=== PATIENT | male | born 1995 | race Two or more races ===

== ENCOUNTER 2019-09-21 23:03 | Emergency (ER) | payer OTHER, SELFPAY ==
[~2019-09-21] VITALS: Ht 170.2 cm; Wt 77.3 kg
[2019-09-21 23:05] VITALS: BP 145/70
== END 2019-09-21 23:23 | disposition home or self-care (01) ==
LOC: ED 23:18
DX: R07.2 Precordial pain (principal)
CPT/HCPCS: 93005; 99283

== ENCOUNTER 2019-10-24 19:43 | Emergency (ER) | payer SELFPAY ==
[~2019-10-24] VITALS: Ht 172.7 cm; Wt 76.2 kg
[2019-10-24 19:44] VITALS: BP 124/58
--- NOTE | 2019-10-24 20:08 | NUR ---
PT C/O INTERMINTENT LEFT CHEST PAIN THAT RADIATES TO NECK AND PAIN IN RFA, FOR ABOUT 2 MONTHS. PCP DX ANXIETY ABOUT A MONTH AGO, PT DOES NOT TAKE PRESCIBED ANXIETY MEDS. PT CONNECTED TO MONITORING. CALL LIGHT IN REACH. PROVIDER AT BEDSIDE. AWAITING ORDERS AT THIS TIME.
[2019-10-24 20:50] LABS: BASOPHILS # (AUTO) 0.03 x10^3/uL (0-0.1); BASOPHILS % (AUTO) 0 % (0-1); EOSINOPHILS # (AUTO) 0.09 x10^3/uL (0-0.4); EOSINOPHILS % (AUTO) 1 % (1-7); LYMPHOCYTES % (AUTO) 37 % (22-44); MD NO; MEAN CORPUSCULAR HEMOGLOBIN 31.1 pg (27.5-34.5); MEAN CORPUSCULAR HGB CONC 33.2 g/dL (33.2-36.2); MEAN CORPUSCULAR VOLUME 93.4 fL (81-97); MONOCYTES # (AUTO) 0.56 x10^3/uL (0.2-0.8); MONOCYTES % (AUTO) 8 % (2-9); NEUTROPHILS # (AUTO) 3.92 x10^3/uL (1.8-6.8); NEUTROPHILS % (AUTO) 54 % (42-75); PLATELET COUNT 255 x10^3/uL (130-400); RED BLOOD COUNT 5.07 x10^6/uL (4.38-5.82); RED CELL DISTRIBUTION WIDTH 13.9 % (9.4-14.8)
[2019-10-24 20:58] LABS: ALBUMIN 4.4 g/dL (3.4-5.0); ANION GAP 7 mmol/L (5-15); CALCIUM 8.6 mg/dL (8.5-10.1); CHLORIDE 104 mmol/L (98-107); CREATININE 0.88 mg/dL (0.7-1.3)
[2019-10-24 21:02] LABS: TROPONIN I < 0.015 ng/mL (0.000-0.045)
== END 2019-10-24 21:46 | disposition home or self-care (01) ==
LOC: ED 21:42
DX: R07.89 Other chest pain (principal); F41.1 Generalized anxiety disorder; R06.00 Dyspnea, unspecified; R51 Headache; R94.31 Abnormal electrocardiogram [ECG] [EKG]
CPT/HCPCS: 36415; 71045; 80048; 82040; 84484; 85025; 93005; 99285